=== PATIENT | male | born 1975 | race Caucasian/White ===

== ENCOUNTER 2023-09-29 12:19 | Emergency (ER) | payer BC, SELFPAY ==
[2023-09-29] VITALS (14 sets, daily range): BP systolic 126–140; BP diastolic 97–104; PULSE 58–78; RESP 18; TEMP 36; O2SAT 95–98; BMI 38.7
--- NOTE | 2023-09-29 13:10 | ED.WEAKNESS ---
HPI - Weakness General Time Seen by Provider: 13:10 Date Seen: 09/29/23 Chief complaint: Weakness Stated complaint: dizzy, feeling faint for over 24 hrs Time Seen by Provider: 09/29/23 12:40 Source: patient and RN notes reviewed Mode of arrival: ambulatory Limitations: no limitations History of Present Illness HPI Narrative: This 48-year-old male is coming in with symptoms of feeling lightheaded and faint, increasing weakness. He feels like he sleeping fine. He has not had any fevers or chills. He has had COVID before and with that he would have body aches and headaches. He has a sense of global head pressure but not truly any pain. States he has had some intermittent blurry vision, feels like it is in both eyes. He notes no nasal drainage, no cough or cold symptoms. He has no history of seasonal allergies. He notes a little left pressure in his chest, has been present since the onset of the symptoms, feels like he started to notice this on September 24 when he just started not feeling well. He endorses some stomach discomfort with eating and drinking anything, thinks he might have ulcers developing, has had a history of ulcers per report. No abdominal pain at this time. About a week ago he did have bright red blood in his stool but notes he had a hemorrhoid. That is the only time that happen. He notes no dark tarry stools. No urinary symptoms. He feels the lightheadedness is worsening. He has not noted any sense of spinning sensation. Related Data Home Medications ?Medication ?Instructions ?Recorded ?Confirmed omeprazole 20 mg tablet,delayed 20 mg PO QDAY 03/06/22 08/02/22 release Allergies Allergy/AdvReac Type Severity Reaction Status Date / Time No Known Drug Allergies Allergy Verified 08/02/22 16:04 Review of Systems Status of ROS: Reports: 6 or more systems reviewed and unremarkable except as noted in History and below [facility] Medical History (Updated 09/29/23 @ 15:35 by Keyona Ordonez MD) Sore throat ?J02.9 - Acute pharyngitis, unspecified (ICD-10) Social History Smoking Status: Former smoker What tobacco products do you use: cigarettes Smoking quit date/years: <= 15 years ago Do you use any of these nicotine containing products: None Second hand tobacco smoke exposure: No How often do you have a drink containing alcohol: monthly or less How many standard drinks containing alcohol do you have on a typical day: 1 or 2 How often do you have six or more drinks on one occasion: Never AUDIT-C Alcohol total score: 1 Non-prescribed substance use: marijuana (any form) service: No Exam Const: Vital Signs, click to edit/add: Vital Signs - 24 hr 09/29/23 12:26 09/29/23 12:50 09/29/23 13:00 Temperature 96.8 F L Pulse Rate 65 65 Pulse Rate [Pulse Oximeter] 67 Respiratory Rate 18 Blood Pressure Blood Pressure [Ri ght Upper Arm] 137/99 H Pulse Oximetry 96 95 95 Oxygen Delivery Me thod Room Air 09/29/23 13:01 09/29/23 13:15 09/29/23 13:40 Temperature Pulse Rate 58 L 77 74 Pulse Rate [Pulse Oximeter] Respiratory Rate Blood Pressure 129/104 H Blood Pressure [Ri ght Upper Arm] Pulse Oximetry 96 97 97 Oxygen Delivery Me thod 09/29/23 13:45 09/29/23 14:00 09/29/23 14:01 Temperature Pulse Rate 62 70 66 Pulse Rate [Pulse Oximeter] Respiratory Rate Blood Pressure 126/97 H Blood Pressure [Ri ght Upper Arm] Pulse Oximetry 96 97 97 Oxygen Delivery Me thod 09/29/23 14:02 09/29/23 14:15 09/29/23 14:30 Temperature Pulse Rate 67 71 78 Pulse Rate [Pulse Oximeter] Respiratory Rate Blood Pressure Blood Pressure [Ri ght Upper Arm] Pulse Oximetry 96 97 97 Oxygen Delivery Me thod 09/29/23 14:31 09/29/23 14:45 Temperature Pulse Rate 62 72 Pulse Rate [Pulse Oximeter] Respiratory Rate Blood Pressure 140/99 H Blood Pressure [Ri ght Upper Arm] Pulse Oximetry 98 97 Oxygen Delivery Me od This 48-year-old male is alert, interactive, no apparent distress. Pupils equal round reactive to light, sclera clear, extraocular muscles intact. TMs canals normal. Symmetrical facial function, oropharynx with normal mucosa, does have an upper denture. Speech is normal. Neck is supple, no adenopathy or masses. Lungs are clear, good air entry, no wheezing or crackles. CV regular rate and rhythm, no murmur, normal S1-S2, no S3-S4. Abdomen is soft, no rebound or guarding, organomegaly, nontender throughout. No lower extremity edema. Neuro is grossly intact with normal sensation strength. Patient was ambulatory into the ED of his own accord. Documenting provider has reviewed patient's vital signs: yes Course Course ED Course: Patient had an EKG done by a nursing staff on arrival, no acute change in that. He will be on pulse oximetry. Will get a full complement of labs, check triple viral swab to ensure no COVID. He will have a chest x-ray, will do a head CT given his symptoms. This could be infectious, metabolic. Reviewed with him that the head CT will give us a cursory look at sinuses 2 in rule out anything like sinus disease/sinusitis. Electrolytes and glucose will be done on the comprehensive metabolic panel. Reevaluation(s) Time of Reevaluation #1: 15:22 Reevaluation #1: Reviewed chest x-ray findings and head CT findings. He does not seem to have significant symptoms suggestive of symptomatic Chiari malformation. We did discuss the importance of further workup in follow-up of this, there is also question of empty sella syndrome. His blurry vision symptoms are not likely to be associated with a Chiari malformation but could be with empty sella syndrome. We cannot do MRI here at this time nor do I feel it needs to be done emergently. He needs this done on a somewhat urgent outpatient basis and should go through his primary care provider. Consideration for endocrine testing needs to be done particularly if there is evidence of empty sella syndrome. Reviewed normal and reassuring labs. Troponin, procalcitonin, C reactive protein all normal. Vital Signs Vital signs: Initial Vital Signs Temperature 96.8 F L 09/29/23 12:26 Temperature Source Temporal Artery Scan 09/29/23 12:26 Pulse Rate 67 09/29/23 12:26 Pulse Rhythm Regular 09/29/23 12:26 Respiratory Rate 18 09/29/23 12:26 Blood Pressure 137/99 H 09/29/23 12:26 Blood Pressure Mean 111 H 09/29/23 12:26 Blood Pressure Position Supine 09/29/23 12:26 Pulse Oximetry 96 09/29/23 12:26 Oxygen Delivery Method Room Air 09/29/23 12:26 Vital Signs Temperature 96.8 F L 09/29/23 12:26 Pulse Rate 67 09/29/23 12:26 Respiratory Rate 18 09/29/23 12:26 Blood Pressure 137/99 H 09/29/23 12:26 Pulse Oximetry 96 09/29/23 12:26 Oxygen Delivery Method Room Air 09/29/23 12:26 Temperature 96.8 F L 09/29/23 12:26 Pulse Rate 72 09/29/23 14:45 Respiratory Rate 18 09/29/23 12:26 Blood Pressure 140/99 H 09/29/23 14:31 Pulse Oximetry 97 09/29/23 14:45 Oxygen Delivery Method Room Air 09/29/23 12:26 MDM - Weakness Lab Data Attestation: I reviewed the patient's lab results. Labs: Lab Results 09/29/23 09/29/23 Range/Units 13:55 14:45 WBC 8.26 (4.50-11.00) K/uL RBC 5.63 (4.30-5.90) m/uL Hgb 16.6 (13.5-17.5) gm/dL Hct 47.3 (37.0-53.0) % MCV 84 (80-100) fL MCH 30 (26-34) pg MCHC 35 (32-36) gm/dL RDW Coeff of Natalia 12.3 (11.5-15.5) % Plt Count 228 (140-440) K/uL Neut % (Auto) 60.7 (42.0-72.0) % Lymph % (Auto) 30.3 (20-44) % [place] % (Auto) 7.1 (0.0-11.0) % Eos % (Auto) 1.2 (0.0-7.0) % Baso % (Auto) 0.6 (0.0-3.0) % Neut # (Auto) 5.01 (1.7-7.0) K/uL Lymph # (Auto) 2.50 (0.90-2.90) K/uL [place] # (Auto) 0.60 (0.00-0.90) K/UL Eos # (Auto) 0.10 (0.00-0.50) K/uL Baso # (Auto) 0.05 (0.00-0.30) K/uL Abs Immat Gran (auto) 0.01 (0.00-0.30) K/uL Imm/Tot Granulo (auto) 0.1 % ESR 2 (2-15) mm/hr D-Dimer Quant (PE/DVT) 0.31 (0.00-0.50) ug/ml Sodium 136 (135-149) mmol/L Potassium 4.2 (3.6-5.1) mmol/L Chloride 105 (96-114) mmol/L Carbon Dioxide 23 (20-32) mmol/L Anion Gap 8 (7-15) mEq/L BUN 14 (5-24) mg/dL Creatinine 0.8 (0.5-1.5) mg/dL Estimated Creat Clear 104.12 Estimated GFR 111 ml/min Glucose 93 (60-115) mg/dL Lactate 1.3 (0.5-1.9) mmol/L Calcium 9.9 (8.4-10.6) mg/dL Magnesium 1.8 (1.5-2.6) mg/dL Total Bilirubin 0.6 (0.1-1.5) mg/dL AST 28 (12-35) U/L ALT 36 (4-50) U/L Alkaline Phosphatase 81 (40-150) U/L Troponin I < 0.01 L (0.01-0.04) ng/mL C-Reactive Protein < 0.5 L (0.5-1.0) mg/dL NT-Pro-B Natriuret Pep 26 pg/mL Total Protein 7.0 (6.0-8.3) g/dL Albumin 4.3 (3.3-5.0) g/dL Lipase 127 (23-300) U/L Procalcitonin 0.05 (<0.50) ng/mL Urine Color Yellow (Yellow) Urine Appearance Clear (Clear) Urine pH 6.0 (5.0-8.5) Ur Specific Thornton 1.020 (1.000-1.030) Urine Protein Negative (Negative) Urine Glucose (UA) Negative (Negative) Urine Ketones Negative (Negative) Urine Blood Negative (Negative) Urine Nitrite Negative (Negative) Urine Bilirubin Negative (Negative) Urine Urobilinogen 0.2 (0.2-1.0) Ur Leukocyte Esterase Negative (Negative) Urine RBC 0-2 (0-2) Urine WBC 0-2 (0-5) Ur Squamous Epith Cells None (None-Few) Urine Bacteria None (None) SARS-CoV-2 (PCR) Negative SARS-CoV-2 (Negative) Influenza Type A (PCR) Negative PCR FLU A (Negative) Influenza Type B (PCR) Negative PCR FLU B (Negative) RSV (PCR) Negative PCR RSV (Negative) Imaging Data CT scan - head: Attestation: I have reviewed the pertinent imaging results. Radiologist's impression: Patient: ANGE TYSON Facility:?[facility] Patient ID:?[id number] Site Patient ID:?[id number]. Site :?[id number] Study:?CT-Head W/O-09/29/2023 1:39:01 PM Ordering Physician:Binta Rand Final Report: INDICATION: Dizziness, head pressure TECHNIQUE: Noncontrast axial CT of the head. Coronal and sagittal reformats. Bone and soft tissue algorithms. COMPARISON: No relevant comparison studies available at this institution. FINDINGS: Right asymmetric low-lying cerebellar tonsils, appearing to descend at least 5 mm below the level of foramen magnum. The ventricles and cortical sulci appear normal in configuration. No midline shift, mass effect, or hydrocephalus. No acute intracranial hemorrhage or extra-axial fluid collection. Lopez-white matter differentiation is grossly maintained. White matter attenuation is within normal limits. Intracranial vessels are unremarkable for technique. Predominantly empty sella configuration. Bony calvarium appears grossly intact. Paranasal sinuses and mastoid air cells are clear. Orbits are unremarkable. IMPRESSION: 1. No CT evidence of acute intracranial abnormality. 2. Right asymmetric low-lying cerebellar tonsils, appearing to descend at least 5 mm below the level of foramen magnum, suggestive of Chiari 1 malformation. 3. Predominantly empty sella configuration, which can be an incidental anatomic/physiologic variant. However, this could also be seen in the setting of intracranial hypertension, for which clinical correlation is advised. Please note that all CT scans at this facility use dose modulation, iterative reconstruction, and/or weight-based dosing when appropriate to reduce radiation dose to as low as reasonably achievable. Dictated by Stacey Blake MD @ 09/29/2023 1:59:36 PM (Electronic Signature) Chest x-ray: Attestation: I have reviewed the pertinent imaging results. Radiologist's impression: Patient: ANGE TYSON Facility:?[facility] Patient ID:?[id number] Site Patient ID:?[id number]. Site :?[id number] Study:?XRay-Chest 2V-09/29/2023 1:39:39 PM Ordering Physician:Binta Rand Final Report: INDICATION: Chest discomfort. Technique: Two-views. COMPARISON: None. FINDINGS: The heart size is upper normal. There is no mediastinal widening. Pulmonary vessels are within normal limits. Subcentimeter focal nodules in the bilateral lungs, on the left just lateral to the hilum, and on the right overlying the posterior aspect of right 8th rib, are probably granulomas. Otherwise, lungs are clear. No sign of pneumothorax. The visualized osseous structures are unremarkable with no acute/aggressive osseous lesions identified. IMPRESSION: Probable pulmonary granulomas, as described. Otherwise no acute cardiopulmonary process demonstrated. Dictated by Hilario Gregory MD @ 09/29/2023 2:23:57 PM (Electronic Signature) ECG Data Attestation: I personally reviewed and interpreted this ECG as follows: (Normal sinus rhythm, 86 beats per minute. No acute ischemia or infarct noted.) ECG interpretation date: 09/29/23 ECG interpretation time: 13:45 Prior ECG tracings: not available for review Discharge Plan Discharge Clinical Impression: Dizziness, Blurred vision, bilateral Patient Disposition: Home, Self-Care Condition: Stable Instructions: Blurred Vision (ED), Dizziness (ED) Additional Instructions: See you will need an outpatient MRI of your brain, please follow up in clinic to get this scheduled to your primary care provider. Do recommend neurology consultation with the MRI report once done as well. The MRI needs to be done for the Chiari malformation as well as the possible empty sella syndrome that is seen on CT imaging. We unfortunately cannot do MRI here at this time, it is not available. If empty sella syndrome is confirmed, need to consider further blood work for endocrine abnormalities. Visual changes can be seen with empty sella syndrome but do recommend that you see an eye doctor in the interim as well to check your vision. I would prefer that you are seen in clinic this next week to get this evaluation underway. Your laboratory blood work is normal. Again, may need more endocrine labs which are not typically emergent labs done in the ER if ongoing symptoms. Activity Level: Activity as Tolerated Prescriptions: No Action omeprazole 20 mg tablet,delayed release (DR/EC) 20 mg PO QDAY Follow Up/Referrals: Provider,Not a Local [Primary Care Provider] - Stand Alone Forms: [employer] Info Instructions
--- NOTE | 2023-09-29 13:17 | CRLHL7_ITS ---
For Patients: As a result of the Century Cures Act, medical imaging exams and procedure reports are released immediately into your electronic medical record. You may view this report before your referring provider. If you have questions, please contact your health care provider. INDICATION: Dizziness, head pressure TECHNIQUE: Noncontrast axial CT of the head. Coronal and sagittal reformats. Bone and soft tissue algorithms. COMPARISON: No relevant comparison studies available at this institution. FINDINGS: Right asymmetric low-lying cerebellar tonsils, appearing to descend at least 5 mm below the level of foramen magnum. The ventricles and cortical sulci appear normal in configuration. No midline shift, mass effect, or hydrocephalus. No acute intracranial hemorrhage or extra-axial fluid collection. Lopez-white matter differentiation is grossly maintained. White matter attenuation is within normal limits. Intracranial vessels are unremarkable for technique. Predominantly empty sella configuration. Bony calvarium appears grossly intact. Paranasal sinuses and mastoid air cells are clear. Orbits are unremarkable. IMPRESSION: 1. No CT evidence of acute intracranial abnormality. 2. Right asymmetric low-lying cerebellar tonsils, appearing to descend at least 5 mm below the level of foramen magnum, suggestive of Chiari 1 malformation. 3. Predominantly empty sella configuration, which can be an incidental anatomic/physiologic variant. However, this could also be seen in the setting of intracranial hypertension, for which clinical correlation is advised. Please note that all CT scans at this facility use dose modulation, iterative reconstruction, and/or weight-based dosing when appropriate to reduce radiation dose to as low as reasonably achievable. Dictated by Stacey Blake MD @ 09/29/2023 1:59:36 PM (Electronically Signed)
--- NOTE | 2023-09-29 13:18 | CRLHL7_ITS ---
For Patients: As a result of the Century Cures Act, medical imaging exams and procedure reports are released immediately into your electronic medical record. You may view this report before your referring provider. If you have questions, please contact your health care provider. INDICATION: Chest discomfort. Technique: Two-views. COMPARISON: None. FINDINGS: The heart size is upper normal. There is no mediastinal widening. Pulmonary vessels are within normal limits. Subcentimeter focal nodules in the bilateral lungs, on the left just lateral to the hilum, and on the right overlying the posterior aspect of right 8th rib, are probably granulomas. Otherwise, lungs are clear. No sign of pneumothorax. The visualized osseous structures are unremarkable with no acute/aggressive osseous lesions identified. IMPRESSION: Probable pulmonary granulomas, as described. Otherwise no acute cardiopulmonary process demonstrated. Dictated by Hilario Gregory MD @ 09/29/2023 2:23:57 PM (Electronically Signed)
--- OUTSIDE RECORDS SUMMARY | 2023-09-29 13:33 | XMS_ITS | Referral Summary ---
Author Organization [facility] Address [address] [place] [address] Care Team Providers Care Food Equipment Service Technician Name Role Phone No Ref-Primary, Physician Primary Care Provider Allergies No known active allergies Medications Medication Sig Dispensed Refills Start Date End Date Status Omeprazole (PRILOSEC PO) Active guaiFENesin-codeine (ROBITUSSIN AC) 100-10 MG/5ML SOLN Take 10 mLs by mouth every 4 hours as needed 120 mL 0 04/02/2013 Active albuterol (ALBUTEROL) 108 (90 BASE) MCG/ACT inhaler Inhale 2 puffs into the lungs every 4 hours as needed for shortness of breath / dyspnea 1 Inhaler 0 04/02/2013 Active oxyCODONE (ROXICODONE) 5 MG immediate release tablet Take 1 tablet (5 mg) by mouth every 6 hours as needed for moderate to severe pain 15 tablet 0 10/11/2014 Active LORazepam (ATIVAN) 0.5 MG tablet Take 0.5 mg by mouth every 6 hours as needed for anxiety Active metoclopramide (REGLAN) 5 MG tablet Take 1 tablet (5 mg) by mouth 4 times daily (before meals and nightly) 20 tablet 12/05/2020 Active SUMAtriptan (IMITREX) 25 MG tablet Take 25-100mg one time. May repeat 25mg every two hours up to a maximum of 200mg in 24 hours. 8 tablet 12/05/2020 Active ibuprofen (ADVIL/MOTRIN) 600 MG tablet Take 1 tablet (600 mg) by mouth every 6 hours as needed for moderate pain 30 tablet 1 12/05/2020 Active Social History Tobacco Use Types Packs/Day Years Used Date Smoking Tobacco: Never Assessed Adolescent Education Answer Date Record ed Getting School Help Needed Not on file 12/30 Sex and Gender Information Value Date Recorded Sex Assigned at Not on file Gender Identity Not on file Sexual Orientation Not on file Last Filed Vital Signs Vital Sign Reading Time Taken Comments Blood Pressure 141/99 12/05/2020 1:49 PM CDT Pulse 70 12/05/2020 1:49 PM CDT Temperature 36.8 ??C (98.2 ??F) 12/05/2020 9:54 AM CD T Respiratory Rate 20 12/05/2020 9:54 AM CDT Oxygen Saturation 98% 12/05/2020 1:44 PM CDT Inhaled Oxygen Concentration - - Weight 101.2 kg (223 lb 1.7 oz) 01/22/2019 5:49 PM CDT Height 167.6 cm (5' 6) 04/11/2017 1:37 PM [employer] Body Mass Index 36.01 04/11/2017 1:37 PM [employer] Plan of Treatment Not on file Procedures Procedure Name Priority Date/Time Associated Diagnosis Comments COMPREHENSIVE METABOLIC PANEL STAT 12/05/2020 12:00 PM CDT from Last 3 Months or Most Recently Relevant to Health Maintenance Results * Comprehensive metabolic panel (12/05/2020 12:00 PM CDT) Sodium 138 133 - 144 mmol/L 12/05/2020 12:31 PM CDT LABORATORY Potassium 4.0 3.4 - 5.3 mmol/L 12/05/2020 12:31 PM CDT LABORATORY Chloride 107 94 - 109 mmol/L 12/05/2020 12:31 PM CDT [facility] Carbon Dioxide (CO2) 25 20 - 32 mmol/L 12/05/2020 12:31 PM CDT [facility] Anion Gap 6 3 - 14 mmol/L 12/05/2020 12:31 PM CDT [facility] Urea Nitrogen 17 7 - 30 mg/dL 12/05/2020 12:31 PM CDT [facility] Creatinine 0.92 0.66 - 1.25 mg/dL 12/05/2020 12:31 PM CDT LABORATORY Calcium 9.2 8.5 - 10.1 mg/dL 12/05/2020 12:31 PM CDT LABORATORY Glucose 82 70 - 99 mg/dL 12/05/2020 12:31 PM CDT LABORATORY Alkaline Phosphatase 81 40 - 150 U/L 12/05/2020 12:31 PM CDT LABORATORY AST 21 0 - 45 U/L 12/05/2020 12:31 PM CDT [facility] ALT 45 0 - 70 U/L 12/05/2020 12:31 PM CDT LABORATORY Protein Total 7.1 6.8 - 8.8 g/dL 12/05/2020 12:31 PM CDT [facility] Albumin 3.9 3.4 - 5.0 g/dL 12/05/2020 12:31 PM CDT LABORATORY Bilirubin Total 0.7 0.2 - 1.3 mg/dL 12/05/2020 12:31 PM CDT [facility] GFR Estimate >90 >60 mL/min/1.7 3m2 12/05/2020 12:31 PM CDT LABORATORY Comment:As of October 02, 2020, eGFR is calculated by the CKD-EPI creatinine equation, without race adjustment. eGFR can be influenced by muscle mass, exercise, and diet. The reported eGFR is an estimation only and is only applicable if the renal function is stable. Blood STRUCTURE OF LEFT UPPER LIMB / Unknown Venipuncture / Unknown 12/05/2020 12:00 PM CDT 12/05/2020 12:06 PM CDT Ceasar Morrison MD LAB - BLOOD PEDRO [facility] Organization Address City/State/ZIP Co de Phone Number LABORATORY [facility] [address] Lab (1st floor, no room number) [place] [address], [facility] [phone] from Last 3 Months or Most Recently Relevant to Health Maintenance Care Teams Food Equipment Service Technician Relationship Specialty Start Date End Date No Ref-Primary, Physician PCP - General 11/13/20
--- OUTSIDE RECORDS SUMMARY | 2023-09-29 13:33 | XMS_ITS | Continuity of Care Document ---
Author Organization [facility] Address [address] [address] [place] [address] Phone Care Team Providers Care Counselor Dormitory Name Role Phone Link Amadou RODRIGUEZ Unavailable Unavailable Advance Directives Directive Yes / No Effective Date File Name No Information Encounters Encounter Description Practice Location Reason(s) For Visit Diagnoses Date Provider Providers Copied on Encounter [facility], [address] [address], [place], [place], [id number], [place] tel:[phone] [facility] No Information 6 Brett Tobar. [address] [facility], [facility] [address], [place], [place], [id number] , [place]. tel:[phone] Referring Provider: Jose David Raya MD, [address] [place] [address], [address]. tel:[phone] Family History Family Member Type Diagnosis Age At Onset No Information Payers Payer name Insurance type Covered libertarian ID Authoriza tion(s) No Information Social History [...]
--- OUTSIDE RECORDS SUMMARY | 2023-09-29 13:33 | XMS_ITS | Continuity of Care Document ---
Author Organization [facility] Address [address] [address] [place] [address] Phone Care Team Providers Care Sanforizer Name Role Phone Link Amadou RODRIGUEZ Unavailable Unavailable Advance Directives Directive Yes / No Effective Date File Name No Information Encounters Encounter Description Practice Location Reason(s) For Visit Diagnoses Date Provider Providers Copied on Encounter [facility], [address] [address], [place], [place], [id number], [place] tel:[phone] [facility] No Information 6 Brett Tobar. [address] [facility], [facility] [address], [place], [place], [id number] , [place]. tel:[phone] Referring Provider: Jose David Raya MD, [address] [place] [address], [address]. tel:[phone] Family History Family Member Type Diagnosis Age At Onset No Information Payers Payer name Insurance type Covered republican ID Authoriza tion(s) No Information Social History [...]
--- OUTSIDE RECORDS SUMMARY | 2023-09-29 13:33 | XMS_ITS | Clinical Summary ---
Author Organization [facility] Address [address] [place] [address] Care Team Providers Care Continuous Drier Helper Name Role Phone No Ref-Primary, Physician Primary [...] 167.6 cm (5' 6) 04/11/2017 1:37 PM ADULT SECONDARY EDUCATION INSTRUCTOR Body Mass Index 36.01 04/11/2017 1:37 PM ADULT SECONDARY EDUCATION INSTRUCTOR Plan of Treatment Health Maintenance Due Date Last Done Comments ADVANCE CARE PLANNING 1977 ANNUAL REVIEW OF HM ORDERS 1977 CT COLONOGRAPHY 1977 FIT 1977 FLEX SIG 1977 YEARLY PREVENTIVE VISIT 1977 sDNA (Cologuard) 1977 COLONOSCOPY 1987 COLORECTAL CANCER SCREENING 1987 HIV SCREENING 02/06/1992 HEPATITIS C SCREENING 1995 DTAP/TDAP/TD IMMUNIZATION (1 - Tdap) 2002 HEPATITIS B IMMUNIZATION (2 of 3 - 19+ 3-dose series) 07/03/2016 06/05/2016 LIPID 2017 COVID-19 Vaccine (1 - 2022-24 season) 2022 PHQ-2 (once per calendar year) 2023 INFLUENZA VACCINE (#1) 2023 GLUCOSE 12/06/2023 12/05/2020, 10/24, 01/22/2019, Additional history exists HPV IMMUNIZATION Aged Out No longer e ligible based on patient's age to complete this topic IPV IMMUNIZATION Aged Out No longer e ligible based on patient's age to complete this topic MENINGITIS IMMUNIZATION Aged Out No l onger eligible based on patient's age to complete this topic Pneumococcal Vaccine: Pediatrics (0 to 5 Years) and At-Risk Patients (6 to 64 Years) Aged Out No longer eligible based on patient's age to complete this topic RSV MONOCLONAL ANTIBODY Aged Out No l onger eligible based on patient's age to complete this topic Procedures Procedure Name Priority Date/Time Associated Diagnosis Comments COMPREHENSIVE METABOLIC PANEL STAT 12/05/2020 12:00 PM CDT from Last 3 Months or Most Recently Relevant to Health Maintenance Results * Comprehensive metabolic panel (12/05/2020 12:00 PM CDT) Sodium 138 133 - 144 mmol/L 12/05/2020 12:31 PM CDT [facility] Potassium 4.0 3.4 - 5.3 mmol/L 12/05/2020 12:31 PM CDT [facility] Chloride 107 94 - 109 mmol/L 12/05/2020 12:31 PM CDT [facility] Carbon Dioxide (CO2) 25 20 - 32 mmol/L 12/05/2020 12:31 PM CDT [facility] Anion Gap 6 3 - 14 mmol/L 12/05/2020 12:31 PM CDT [facility] Urea Nitrogen 17 7 - 30 mg/dL 12/05/2020 12:31 PM CDT [facility] Creatinine 0.92 0.66 - 1.25 mg/dL 12/05/2020 12:31 PM CDT [facility] Calcium 9.2 8.5 - 10.1 mg/dL 12/05/2020 12:31 PM CDT [facility] Glucose 82 70 - 99 mg/dL 12/05/2020 12:31 PM CDT [facility] Alkaline Phosphatase 81 40 - 150 U/L 12/05/2020 12:31 PM CDT [facility] AST 21 0 - 45 U/L 12/05/2020 12:31 PM CDT [facility] ALT 45 0 - 70 U/L 12/05/2020 12:31 PM CDT [facility] Protein Total 7.1 6.8 - 8.8 g/dL 12/05/2020 12:31 PM CDT [facility] Albumin 3.9 3.4 - 5.0 g/dL 12/05/2020 12:31 PM CDT [facility] Bilirubin Total 0.7 0.2 - 1.3 [...] Morrison MD LAB - BLOOD PEDRO [facility] Organization Address City/State/ZIP Co de Phone Number LABORATORY [facility] [address] [facility] (1st floor, no room number) [place] [address], [facility] [phone] from Last 3 Months or Most Recently Relevant to Health Maintenance Care Teams Continuous Drier Helper Relationship Specialty Start Date End Date No Ref-Primary, Physician PCP - General 11/13/20
[2023-09-29 14:01] LABS: Lactate* 1.3 mmol/L (0.5-1.9)
[2023-09-29 14:05] LABS: Basophils Absolute Auto 0.05 K/uL (0.00-0.30); Basophils Percent Auto 0.6 % (0.0-3.0); Eosinophils Percent Auto 1.2 % (0.0-7.0); Hematocrit 47.3 % (37.0-53.0); Hemoglobin* 16.6 gm/dL (13.5-17.5); Immature Granulocytes Abs Auto 0.01 K/uL (0.00-0.30); Immature Granulocytes Pct Auto 0.1 %; Lymphocytes Percent Auto 30.3 % (20-44); Mean Corpuscular HGB Conc 35 gm/dL (32-36); Mean Corpuscular Hemoglobin 30 pg (26-34); Mean Corpuscular Volume 84 fL (80-100); Monocytes Percent Auto 7.1 % (0.0-11.0); Neutrophils Absolute Auto 5.01 K/uL (1.7-7.0); Neutrophils Percent Auto 60.7 % (42.0-72.0); Platelet Count* 228 K/uL (140-440); RDW Coefficient of Variation % 12.3 % (11.5-15.5); Red Blood Count 5.63 m/uL (4.30-5.90); White Blood Count* 8.26 K/uL (4.50-11.00)
[2023-09-29 14:21] LABS: Albumin* 4.3 g/dL (3.3-5.0); Chloride* 105 mmol/L (96-114); Slide Review Reflex No
[2023-09-29 14:22] LABS: Potassium* 4.2 mmol/L (3.6-5.1); Sodium* 136 mmol/L (135-149)
[2023-09-29 14:24] LABS: Bilirubin Total* 0.6 mg/dL (0.1-1.5); Creatinine* 0.8 mg/dL (0.5-1.5); Est. Creatinine Clearance* 104.12; Estimated Glomerular Filt Rate 111 ml/min
[2023-09-29 14:25] LABS: Alanine Aminotransferase* 36 U/L (4-50); Alkaline Phosphatase* 81 U/L (40-150); Anion Gap 8 mEq/L (7-15); Aspartate Amino Transferase* 28 U/L (12-35); Blood Urea Nitrogen* 14 mg/dL (5-24); Calcium* 9.9 mg/dL (8.4-10.6); Carbon Dioxide* 23 mmol/L (20-32); D Dimer Quantitative* 0.31 ug/ml (0.00-0.50); Glucose* 93 mg/dL (60-115); Lipase* 127 U/L (23-300); Magnesium* 1.8 mg/dL (1.5-2.6)
[2023-09-29 14:41] LABS: Procalcitonin* 0.05 ng/mL (<0.50)
[2023-09-29 14:45] LABS: C Reactive Protein* < 0.5 mg/dL (0.5-1.0); NT Pro B Type NatriureticPept* 26 pg/mL; Troponin I* < 0.01 ng/mL (0.01-0.04)
[2023-09-29 14:56] LABS: PCR FLU A Negative PCR FLU A (Negative); PCR FLU B Negative PCR FLU B (Negative); PCR RSV Negative PCR RSV (Negative); SARS PCR* Negative SARS-CoV-2 (Negative)
[2023-09-29 15:02] LABS: Appearance Urine Clear (Clear); Bilirubin Urine Negative (Negative); Blood Urine Negative (Negative); Color Urine Yellow (Yellow); Glucose Urine Negative (Negative); Ketones Urine Negative (Negative); Leukocyte Esterase Urine Negative (Negative); Nitrite Urine Negative (Negative); Protein Urine Negative (Negative); Urobilinogen Urine 0.2 (0.2-1.0)
[2023-09-29 15:03] LABS: Erythrocyte SedimentationRate* 2 mm/hr (2-15)
[2023-09-29 15:15] LABS: RBC Urine 0-2 (0-2); WBC Urine 0-2 (0-5)
== END 2023-09-29 15:43 | disposition home or self-care (01) ==
PROVIDERS: Emergency Provider Family Medicine
DX: H53.8 Other visual disturbances (principal)
CPT/HCPCS: 36415; 70450; 71046; 80053; 81001; 83605; 83690; 83735; 83880; 84145; 84484; 85025; 85379; 85651; 86140; 87631; 93005; 94761; 99284; 99285

== ENCOUNTER 2025-03-20 11:21 | Emergency (ER) | payer BC, SELFPAY ==
--- OUTSIDE RECORDS SUMMARY | 2015-05-20 05:06 | XMS_ITS | Continuity of Care Document ---
Author Organization [facility] Address [address] [address] [place] [address] Phone Care Team Providers Care Vp Of Digital Marketing Name Role Phone Link Amadou RODRIGUEZ Unavailable Unavailable Advance Directives Directive Yes / No Effective Date File Name No Information Encounters Encounter Description Practice Location Reason(s) For Visit Diagnoses Date Provider Providers Copied on Encounter [facility], [address] [address], [place], [place], [id number], [place] tel:[phone] [facility] No Information 6 Brett Tobar. [address] [facility], [facility] [address], [place], [place], [id number] , [place]. tel:[phone] Referring Provider: Jose David Raya MD, [address] [place] [address], [address]. tel:[phone] Family History Family Member Type Diagnosis Age At Onset No Information Payers Payer name Insurance type Covered democrat ID Authoriza tion(s) No Information Social History Type Description Quantity Date Captured Comments Sex Male Smoking Status No Information Chief Complaint And Reason For Visit No Information Reason For Referral Reason For Referral No Information History Of Present Illness Encounter Date Complaint History Of Prese nt Illness No Information Functional Status Date Functional Assessmen t No Information Instructions Date Instruction Additional Infor mation No Information Assessments Type Assessment Date No Information Patient Care Teams Name Effective Dates (start - stop) Status Members No Information
--- OUTSIDE RECORDS SUMMARY | 2015-05-20 05:06 | XMS_ITS | Continuity of Care Document ---
Author Organization [facility] Address [address] [address] [place] [address] Phone Care Team Providers Care Life Skills Consultant Name Role Phone Link Amadou RODRIGUEZ Unavailable Unavailable Advance Directives Directive Yes / No Effective Date File Name No Information Encounters Encounter Description Practice Location Reason(s) For Visit Diagnoses Date Provider Providers Copied on Encounter [facility], [address] [address], [place], [place], [id number], [place] tel:[phone] [facility] No Information 6 Brett Tobar. [address] [facility], [facility] [address], [place], [place], [id number] , [place]. tel:[phone] Referring Provider: Jose David Raya MD, [address] [place] [address], [address]. tel:[phone] Family History Family Member Type Diagnosis Age [...]
--- OUTSIDE RECORDS SUMMARY | 2025-02-16 01:11 | XMS_ITS | Encounter Summary ---
Author Organization [facility] Address [address] [place] [address] Care Team Providers Care Paginator Name Role Phone No Ref-Primary, Physician Primary Care Provider Reason for Visit * ReasonCommentsLaceration Encounter Details DateTypeDepartmentCare Team (Latest Contact Info)Uprbynadivb21/25/2025 1:11 AM SHEET METAL PRODUCTION WORKER - 02/16/2025 2:29 AM CSTEmerjonathan [facility] [address] [place] [phone] Jhonatan Manzano MD [facility] [address] [facility] [address] [place] [address] [place] [id number] Arm laceration, left, initial encounter (Primary Dx) Discharge Disposition: Home or Self Care Social History Tobacco UseTypesPacks/DayYears UsedDateSmoking Tobacco: Never AssessedAdolescent EducationAnswerDate RecordedGetting School Help NeededNot on file12/30/2022Sex and Gender InformationValueDate RecordedSex Assigned at BirthNot on fileLegal TmrKmuc40/04/2012 4:13 AM CSTGender IdentityNot on fileSexual OrientationNot on filedocumented as of this encounter Last Filed Vital Signs Vital SignReadingTime TakenCommentsBlood Jcwjkwkq024/3301302/16/2025 2:14 AM SHEET METAL PRODUCTION WORKER Aahls865802/16/2025 2:23 AM YWHMjjhnwhfoox39.6 ??C (97.8 ??F)02/15/2025 10:57 PM CSTRespiratory Aogj826904/18/2024 2:23 AM CSTOxygen Wjjusbshub84%02/16/2025 2:23 AM CSTInhaled Oxygen Concentration--Gxldzk345.8 kg (255 lb 4.7 oz)02/15/2025 10:57 PM ZJSAltfun075.2 cm (5' 7)02/15/2025 10:57 PM CSTBody Mass Index39.98 02/15/2025 10:57 PM CSTdocumented in this encounter Functional Status * Calculated C-SSRS Risk Score (Lifetime/Recent)AnswerDate of AssessmentAuthorNo Risk Hstmsoihi27/24/2025 11:00 PM Apolonia Judge, RN * [place] Suicide Severity Rating Scale (Screener/Recent Self-Report)Question AnswerDate of AssessmentAuthor1. Wish to be (Past 1 Month)No02/15/2025 11:00 PM Apolonia Judge, RN2. Non-Specific Active Suicidal Thoughts (Past 1 Month)No02/15/2025 11:00 PM Apolonia Judge, RN6. Suicidal Behavior (Lifetime)No02/15/2025 11:00 PM Apolonia Judge, RN documented as of this encounter Discharge Instructions * Discharge Instructions* Jhonatan Manzano MD - 02/16/2025 2:18 AM SHEET METAL PRODUCTION WORKER Your sutures should be removed in 10 to 14 days. Discharge Instructions Laceration (Cut) You were seen today for a laceration (cut). Your provider examined your laceration for any problemssuch a buried foreign body (like glass, a splinter, or gravel), or injury to blood vessels, tendons, and nerves. Your provider may have also rinsed and/or scrubbed your laceration to help prevent an infection. It may not be possible to find all problems with your laceration on the first visit; occasionally foreign bodies or a tendon injury can go undetected. Your laceration may have been closed in one of several ways: No closure: many wounds will heal just fine without closure. Stitches: regular stitches that require removal. Luisa: skin luisa are often used in the scalp/head. Wound adhesive (glue): skin glue can be used for certain lacerations and doesn???t require removal. Wound strips (aka Butterfly bandages or steri-strips): these are bandages that help to close a wound. Absorbable stitches: ???dissolving?? stitches that go away on their own and usually don???t require removal. A small percentage of wounds will develop an infection regardless of how well the wound is cared for. Antibiotics are generally not indicated to prevent an infection so are only given for a small number of high-risk wounds. Some lacerations are too high risk to close, and are left open to heal because closure can increase the likelihood that an infection will develop. Remember that all lacerations, no matter how expertly repaired, will cause scarring. We consider many factors, techniques, and materials, in our efforts to provide the best possible cosmetic outcome. Generally, every Emergency Department visit should have a follow-up clinic visit with either a primary or a specialty clinic/provider. Please follow-up as instructed by your emergency provider today. Return to the Emergency Department right away if: You have more redness, swelling, pain, drainage (pus), a bad smell, or red streaking from your laceration as these symptoms could indicate an infection. You have a fever of 100.4??F or more. You have bleeding that you cannot stop at home. If your cut starts to bleed, hold pressure on the bleeding area with a clean cloth or put pressure over the bandage. If the bleeding does not stop after using constant pressure for 30 minutes, you should return to the Emergency Department for further treatment. An area past the laceration is cool, pale, or blue compared with the other side, or has a slower return of color when squeezed. Your dressing seems too tight or starts to get uncomfortable or painful. For children, signs of a problem might be irritability or restlessness. You have loss of normal function or use of an area, such as being unable to straighten or bend a finger normally. You have a numb area past the laceration. Return to the Emergency Department or see your regular provider if: The laceration starts to come open. You have something coming out of the cut or a feeling that there is something in the laceration. Your wound will not heal, or keeps breaking open. There can always be glass, wood, dirt or other things in any wound. They will not always show up, even on x-rays. If a wound does not heal, this may be why, and it is important to follow-up with your regular provider. Home Care: Take your dressing off in 12-24 hours, or as instructed by your provider, to check your laceration.Remove the dressing sooner if it seems too tight or painful, or if it is getting numb, tingly, or pale past the dressing. Gently wash your laceration 1-2 times daily with clean water and mild soap. It is okay to shower orrun clean water over the laceration, but do not let the laceration soak in water (no swimming). If your laceration was closed with wound adhesive or strips: pat it dry and leave it open to the air. For all other repairs: after you wash your laceration, or at least 2 times a day, apply antibiotic ointment (such as Neosporin?? or Bacitracin??) to the laceration, then cover it with a Band-Aid?? or gauze. Keep the laceration clean. Wear gloves or other protective clothing if you are around dirt. Follow-up for removal: If your wound was closed with luisa or regular stitches, they need to be removed according to theinstructions and timeline specified by your provider today. If your wound was closed with absorbable (???dissolving?? ) sutures, they should fall out, dissolve, or not be visible in about one week. If they are still visible, then they should be removed according to the instructions and timeline specified by your provider today. Scars: To help minimize scarring: Wear sunscreen over the healed laceration when out in the sun. Massage the area regularly once healed. You may apply Vitamin E to the healed wound. Wait. Scars improve in appearance over months and years. If you were given a prescription for medicine here today, be sure to read all of the information (including the package insert) that comes with your prescription. This will include important information about the medicine, its side effects, and any warnings that you need to know about. The pharmacist who fills the prescription can provide more information and answer questions you may have about the medicine. If you have questions or concerns that the pharmacist cannot address, please call or return to the Emergency Department. Remember that you can always come back to the Emergency Department if you are not able to see your regular provider in the amount of time listed above, if you get any new symptoms, or if there is anything that worries you. T METAL PRODUCTION WORKER documented in this encounter Medications at Time of Discharge MedicationSigDispense QuantityRefillsLast FilledStart DateEnd Date albuterol (ALBUTEROL) 108 (90 BASE) MCG/ACT inhaler Inhale 2 puffs into the lungs every 4 hours as needed for shortness of breath / dyspnea 1 Inhaler guaiFENesin-codeine (ROBITUSSIN AC) 100-10 MG/5ML SOLN Take 10 mLs by mouth every 4 hours as needed 120 mL LORazepam (ATIVAN) 0.5 MG tablet Take 0.5 mg by mouth every 6 hours as needed for anxiety metoclopramide (REGLAN) 5 MG tablet Take 1 tablet (5 mg) by mouth 4 times daily (before meals and nightly) 20 tablet 12/05/2020 Omeprazole (PRILOSEC PO) oxyCODONE (ROXICODONE) 5 MG immediate release tablet Take 1 tablet (5 mg) by mouth every 6 hours as needed for moderate to severe pain 15 tablet SUMAtriptan (IMITREX) 25 MG tablet Take 25-100mg one time. May repeat 25mg every two hours up to a maximum of 200mg in 24 hours. 8 tablet 12/05/2020 ibuprofen (ADVIL/MOTRIN) 800 MG tablet Take 1 tablet (800 mg) by mouth every 6 hours as needed for moderate pain. 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 It was immediately dressed with a pressure wrap by one of his coworkers. He has no loss of sensation distal to the wound and is moving his hand without any difficulty. Reports that his last tetanus booster was several months ago had a PCP appointment Independent Historian: None Review of External Notes: None pertinent Past Medical History Medical History and Problem List Past Medical History: Diagnosis Date ??? Gastro-oesophageal reflux disease Medications ibuprofen (ADVIL/MOTRIN) 800 MG tablet albuterol (ALBUTEROL) 108 (90 BASE) MCG/ACT inhaler guaiFENesin-codeine (ROBITUSSIN AC) 100-10 MG/5ML SOLN LORazepam (ATIVAN) 0.5 MG tablet metoclopramide (REGLAN) 5 MG tablet Omeprazole (PRILOSEC PO) oxyCODONE (ROXICODONE) 5 MG immediate release tablet SUMAtriptan (IMITREX) 25 MG tablet Past Surgical History: No past surgical history on file. Past Medical History Patient Vitals for the past 24 hrs: BP Temp Temp src Pulse Resp SpO2 Height Weight 02/16/25 0119 (!) 144/108 -- -- 89 -- -- -- -- 02/15/25 2257 (!) 174/127 97.8 ??F (36.6 ??C) Temporal 87 20 93 % 1.702 m (5' 7) 115.8 kg (255 lb 4.7 oz) Physical Exam Sitting upright in bed with gauze wrap dressing around left upper arm with no strikethrough noted. He is awake, alert, and in no distress. Breathing comfortably on room air with symmetric chest rise.2+ radial pulse. Bandage removed from left upper arm demonstrating a 7 cm laceration with exposed mayer bcutaneous fat but no active bleeding and neurovascularly intact. No foreign bodies visualized. Sensation intact and motor intact distal to wound and radial, median, and ulnar nerve. Diagnostics Lab Results Labs Ordered and Resulted from Time of ED Arrival to Time of ED Departure - No data to display Imaging XR Elbow Left G/E 3 Views Final Result IMPRESSION: Normal joint spaces and alignment. No fracture or joint effusion. Independent Interpretation X-ray of left upper arm/elbow shows no visible foreign bodies ED Course Medications Administered Medications lidocaine 1% with EPINEPHrine 1:100,000 1 %-1:523799 injection (has no administration in time range) ibuprofen (ADVIL/MOTRIN) tablet 800 mg (has no administration in time range) Procedures Laceration Repair Procedure: Laceration Repair Indication: Laceration Consent: Verbal Tetanus status reviewed and up-to-date Location: Left medial upper arm Length: 7 cm Preparation: Irrigation with Sterile Saline. Anesthesia/Sedation: Lidocaine with Epinephrine - 1% Treatment/Exploration: Wound explored, no foreign bodies found Closure: The wound was closed with one layer. Skin/superficial layer was closed with 11 x 4-0 Nylonusing Interrupted sutures. Patient Status: The patient tolerated the procedure well: Yes. There were no complications. Medical Decision Making / Diagnosis [facility] Diagnoses: None MIPS None [facility] Phil Gallagher is a 50 year old male presenting with a 7 cm laceration to his left upper arm. X-rays obtained in triage with no evidence of foreign bodies on my independent interpretation. Anesthetized, washed out, and closed as above. Given ibuprofen for pain and instructed to have sutures removedin 10 to 14 days. All questions answered, patient discharged home. Disposition The patient was discharged. Diagnosis ICD-10-CM 1. Arm laceration, left, initial encounter S41.112A Discharge Medications Current Discharge Medication List Jhonatan Manzano MD 02/16/25 0224 T METAL PRODUCTION WORKER * Apolonia Meneses RN - 02/15/2025 10:59 PM CST Scrap metal sliced into right arm. Bleeding controlled. CMS intact. Triage Assessment Row Name 02/15/25 9308 Triage Assessment Airway WDL WDL Respiratory WDL Respiratory WDL WDL Peripheral/Neurovascular WDL Peripheral Neurovascular WDL pulse assessment;neurovascular assessment upper;capillary refill Capillary Refill, RUE less than/equal to 3 secs Pulse Assessment radial LUE Neurovascular Assessment Sensation LUE no tingling;no numbness Pulse Radial Left Radial Pulse 2+ (normal) T METAL PRODUCTION WORKER documented in this encounter Plan of Treatment Not on file documented as of this encounter Procedures Procedure NamePriorityDate/TimeAssociated DiagnosisCommentsXR ELBOW LEFT G/E 3 IFYGCOAAF45/24/2025 11:15 PM SHEET METAL PRODUCTION WORKER documented in this encounter Results * XR Elbow Left G/E 3 Views (02/15/2025 11:15 PM SHEET METAL PRODUCTION WORKER)Anatomical RegionLaterality ModalityElbow, Left ElbowLeftComputed RadiographySpecimen (Source)Anatomical Location / LateralityCollection Method / VolumeCollection TimeReceived Time 02/15/2025 11:15 PM SHEET METAL PRODUCTION WORKER Impressions 02/15/2025 11:37 PM SHEET METAL PRODUCTION WORKER IMPRESSION: Normal joint spaces and alignment. No fracture or joint effusion. Narrative 02/15/2025 11:37 PM SHEET METAL PRODUCTION WORKER EXAM: XR ELBOW LEFT G/E 3 VIEWS LOCATION: [facility] DATE: 02/15/2025 INDICATION: Trauma COMPARISON: None. Procedure Note Yobani Warner MD - 02/15/2025 EXAM: XR ELBOW LEFT G/E 3 VIEWS LOCATION: [facility] DATE: 02/15/2025 INDICATION: Trauma COMPARISON: None. IMPRESSION: Normal joint spaces and alignment. No fracture or jointeffusion. Authorizing ProviderResult TypeResult StatusChristopher Eliseo DIAS DIAGNOSTIC IMAGING ORDERABLESFinal Result documented in this encounter Visit Diagnoses Diagnosis Arm laceration, left, initial encounter- Primary documented in this encounter Administered Medications Medication OrderMAR ActionAction DateDoseRateSite ibuprofen (ADVIL/MOTRIN) tablet 800 mg 800 mg, Oral, ONCE, On Sat02/16/25 at 0220, For 1 dose, Give with food. $Given02/16/2025 2:22 AM POE150 mg lidocaine 1% with EPINEPHrine 1:100,000 1 %-1:140099 injection Starting on Sat02/16/25 at 0134, For 1 dose, Jhonatan Manzano N: cabineangela override $Given by Other Demijiuzc67/25/2025 2:22 AM CSTdocumented in this encounter Active and Recently Administered Medications Times are shown in SHEET METAL PRODUCTION WORKER.Medication Order/ ibuprofen (ADVIL/MOTRIN) tablet 800 mg (COMPLETED) 800 mg, Oral, ONCE, On Sat02/16/25 at 0220, For 1 dose, Give with food. * 0222 ($Given - Provider: Lisa Huang RN) Medication Order11/23/010391 lidocaine 1% with EPINEPHrine 1:100,000 1 %-1:445811 injection (COMPLETED) Starting on Sat02/16/25 at 0134, For 1 dose, Sweat, Yuriyer N: cabinet override * 0222 ($Given by Other Clinician - Provider: Lisa Huang RN) documented in this encounter Care Teams Team MemberRelationshipSpecialtyStart DateEnd Date No Ref-Primary, Physician PCP - [facility]11/13/20documented as of this encounter
[2025-03-20] VITALS (10 sets, daily range): BP systolic 132–157; BP diastolic 96–102; PULSE 69–93; RESP 18; TEMP 36.8; O2SAT 94–98; BMI 40.0
--- OUTSIDE RECORDS SUMMARY | 2025-03-20 11:23 | XMS_ITS | Encounter Summary ---
Author Organization [facility] Address [address] [place] [address] Care Team Providers Care Toolmaker Name Role Phone No Ref-Primary, Physician Primary Care Provider Encounter Details DateTypeDepartmentCare Team (Latest Contact Info)Hjsgbqrygws27/24/2025Travel Social History Tobacco UseTypesPacks/DayYears UsedDateSmoking Tobacco: Never AssessedAdolescent EducationAnswerDate RecordedGetting School Help NeededNot on file12/30/2022Sex and Gender InformationValueDate RecordedSex Assigned at BirthNot on fileLegal YpyDtqt37/04/2012 4:13 AM CSTGender IdentityNot on fileSexual OrientationNot on filedocumented as of this encounter Plan of Treatment Not on file documented as of this encounter Visit Diagnoses Not on filedocumented in this encounter Care Teams Team MemberRelationshipSpecialtyStart DateEnd Date No Ref-Primary, Physician PCP - General11/13/20documented as of this encounter
--- OUTSIDE RECORDS SUMMARY | 2025-03-20 11:23 | XMS_ITS | Clinical Summary ---
Author Organization [facility] Address [address] [place] [address] Care Team Providers Care Administrative Office Clerk Name Role Phone Sirena Vincent Primary Care Provider Allergies No known active allergies Medications MedicationSigDispense QuantityRefillsLast FilledStart DateEnd DateStatus omeprazole (PRILOSEC) 20 mg Delayed-Release capsule Take 1 Capsule (20 mg) by mouth once daily before a meal. Take 30 minutes prior to a meal09/30/2023ctive Calcium Carbonate (Tums) 320 mg calcium (750 mg) chew Chew by mouth.Active ergocalciferol (vitamin D2) (VITAMIN D2 ORAL) Take by mouth every 3 days.Active Active Problems ProblemNoted DateDiagnosed DateChiari malformation type I12/04/2023New daily persistent jfgxjemc87/11/2024Tension type vyapwadl77/11/2024epression, yfpbwihcy97/19/5339Gwzfbjy00/19/2022 Immunizations ImmunizationAdministration DatesNext DueHepatitis B (Adult)09/18/2024,06/05/2016 MMR06/05/2016Tdap09/18/2024,07/01/2014Varicella Aqpsjjx1106/05/2016 Family History Medical HistoryRelationNameCommentsNo Known ProblemsFatherNo Known Problems Maternal GrandfatherArrhythmiaMaternal GrandmotherHypertensionMaternal GrandmotherAlcoholismMotherDrug AbuseMotherNo Known ProblemsPaternal Grandfather No Known ProblemsPaternal GrandmotherDepressionSister 1Drug AbuseSister 1Obesity Sister 1StrokeSister 1DiabetesSister 2No Known ProblemsSonRelationNameStatus CommentsFatherUnknownMaternal GrandfatherDeceasedMaternal GrandmotherDeceased MotherDeceasedPaternal GrandfatherDeceasedPaternal GrandmotherDeceasedSister 1 DeceasedSister 2SonAlive Social History Tobacco UseTypesPacks/DayYears UsedDateSmoking Tobacco: FormerSmokeless Tobacco: Never Tobacco Cessation:Counseling Given: Not Answered Comments:quit 05/20/16 Alcohol UseStandard Drinks/WeekCommentsYes0 (1 standard drink = 0.6 oz pure alcohol)socialPHQ-2AnswerDate RecordedPHQ-2 TOTAL CRCSH453Social ConnectionsAnswerDate RecordedDo you often feel lonely or isolated from those around you?Financial Resource StrainAnswerDate RecordedDifficulty of Paying Living Zlyzapfu300/04/2025Difficulty of Paying Living ExpensesNot on file 11/26/2024Food InsecurityAnswerDate RecordedDo you worry your food will run out before you are able to buy more?Transportation NeedsAnswerDate RecordedDoes lack of transportation keep you from medical appointments?1 11/26/2024Does lack of transportation keep you from work, meetings or getting things that you need?Housing StabilityAnswerDate RecordedWhat is your housing situation today?UtilitiesAnswerDate RecordedDo you have trouble paying for utilities (for example, heat, electricity, water, phone)?1 11/26/2024Sex and Gender InformationValueDate RecordedSex Assigned at BirthNot on fileLegal YggQiwa3904/07/2012 5:43 AM CSTGender IdentityNot on fileSexual OrientationNot on file Last Filed Vital Signs Vital SignReadingTime TakenCommentsBlood Ezyxozgh809/7809 11:14 AM CDT Hhozm703611/26/2024 11:14 AM UHLLrxqmkniqtc81 ??C (98.6 ??F)11/26/2024 11:14 AM CDTRespiratory Ipgz858908/04/2021 10:32 AM CDTOxygen Flgatzkooa81%11/26/2024 11:14 AM CDTInhaled Oxygen Concentration--Lgwztx897.3 kg (243 lb 3.2 oz)11/26/2024 11:14 AM FFIXkeqxt192.3 cm (5' 6.25)09/18/2024 9:48 AM CDTBody Mass Index38.96 09/18/2024 9:48 AM CDT Plan of Treatment Health MaintenanceDue DateLast DoneCommentsHepatitis B series for 19+ (3 of 3 - 19+ 3-dose series), 06/05/2016COVID-19 vaccine series (2024- season)2024Influenza Vaccine (#1)2024MI (ht and wt on same day) for age 18+, 05/28/2023, 06/27/2022, Additional history existsDepression screening for age 12+, 06/27/2022, 04/12/2021Lipids for age 45-7506/, 06/27/2022Tetanus booster , 07/01/2014Colonoscopy through age 7507// (Verified in Care Everywhere or Patient Record)HIV for age 15-65Completed 09/18/2024Hepatitis C screening for age 18-15Wbapomcjg30/27/2025Pneumococcal series for age 6-49Aged OutNo longer eligible based on patient's age to complete this topic Procedures Procedure NamePriorityDate/TimeAssociated DiagnosisCommentsANTI HIV 1/2Routine 09/18/2024 10:33 AM CDT Screening for HIV (human immunodeficiency virus) ANTI SOMQywlxpv01/27/2025 10:33 AM CDT Need for hepatitis C screening test LIPID PANEL W REFLEX MEASURED OVNPxtemqk79/27/2025 10:33 AM CDT Screening for hyperlipidemia from Last 3 Months or Most Recently Relevant to Health Maintenance Results * (ABNORMAL) LIPID PANEL W REFLEX MEASURED LDL (09/18/2024 10:33 AM CDT) ComponentValueRef RangeTest MethodAnalysis TimePerformed AtPathologist SignatureCHOLESTEROL, EIHAM091(H)<200 mg/dLQuest Azure Power [facility] HealtheHDL RWNJIVCFQAW04> OR = 40 mg/dLQuest [facility] DgleCUKVPVMYEXOJN728(H)<150 mg/dLQuest [facility] Power [facility] HealtheComment: If a non-fasting specimen was collected, consider repeat triglyceride testing on a fasting specimen if clinically indicated. Ant et al. J. of Clin. Lipidol. 2015;9:129-169. LDL-PSRZNLXHNTZ106(H)mg/dL (calc)ViaSat [facility]arn[facility] HealtheComment: Reference range: <100 Desirable range <100 mg/dL for primary prevention; <70 mg/dL for patients with CHD or diabetic patients with > or = 2 CHD risk factors. LDL-C is now calculated using the Ac-Gabriel calculation, which is a validated novel method providing better accuracy than the Friedewald equation in the estimation of LDL-C. Ac SS et al. HELADIO. 2013;310(19): 0971-2724 (http://education.[employer] World [employer]/faq/JSI821) CHOL/HDLC RATIO5.3(H)<5.0 (calc)V[facility] HealtheNON HDL CHOLESTEROL 192(H)<130 mg/dL (calc)ViaSat [facility] HealtheComment: For patients with diabetes plus 1 major ASCVD risk factor, treating to a non-HDL-C goal of <100 mg/dL (LDL-C of <70 mg/dL) is considered a therapeutic option. Specimen (Source)Anatomical Location / LateralityCollection Method / Volume Collection TimeReceived TimeBloodBLOOD SPECIMEN / Msrndsz4609/18/2024 10:33 AM CDT 09/18/2024 10:34 AM CDT Narrative Authorizing ProviderResult TypeResult StatusMacBeaumont Hospital PACHEMISTRY Final ResultPerforming OrganizationAddressCity/State/ZIP CodePhone Number [employer] [address] [phone], [place] [facility] [address] [place] [address] * ANTI HCV (09/18/2024 10:33 AM CDT)ComponentValueRef RangeTest MethodAnalysis TimePerformed AtPathologist SignatureHEPATITIS C ANTIBODYNON-REACTIVE NON-REACTIVENeo NetworksLakeview HospitaleComment: HCV antibody was non-reactive. There is no laboratory evidence of HCV infection. In most cases, no further action is required. However, if recent HCV exposure is suspected, a test for HCV RNA (test code 49177) is suggested. For additional information please refer to http://education.KXEN/faq/QCE55b7 (This link is being provided for informational/ educational purposes only.) Specimen (Source)Anatomical Location / LateralityCollection Method / Volume Collection TimeReceived TimeBloodBLOOD SPECIMEN / Qdtvcoj1209/18/2024 10:33 AM CDT 09/18/2024 10:34 AM CDT Narrative Authorizing ProviderResult TypeResult StatusMacHighland Hospital Final ResultPerforming OrganizationAddressCity/State/ZIP CodePhone Number [employer] [address] [phone], [place] [facility] [address] [place] [address] * ANTI HIV 1/2 [73596.0] (09/18/2024 10:33 AM CDT)ComponentValueRef RangeTest MethodAnalysis TimePerformed AtPathologist SignatureHIV FINAL INTERPRETATOIN Neo NetworksLakeview HospitaleComment: HIV Negative HIV-1 antigen and HIV-1/HIV-2 antibodies were not detected. There is no laboratory evidence of HIV infection. HIV AG/AB, 4TH EDLYBF-DXBKGOXNJRS-CQMXYPZRCxuvx DiagnosticsLakeview HospitaleSpecimen (Source)Anatomical Location / LateralityCollection Method / VolumeCollection TimeReceived TimeBloodBLOOD SPECIMEN / Cmlgtwz7609/18/2024 10:33 AM CDT09/18/2024 10:34 AM CDT Narrative Authorizing ProviderResult TypeResult StatusMackencarter Vincent PASEND OUTS Final ResultPerforming OrganizationAddressCity/State/ZIP CodePhone Number [facility] [address] [facility] [address], [facility] [address] [place] [address] from Last 3 Months or Most Recently Relevant to Health Maintenance Insurance * Guarantor: Phil Gallagher AAccount TypeRelation to PatientDate of BirthPhone Billing AddressPersonal/[address] [place] [address] * Guarantor: Phil Gallagher AAccount TypeRelation to PatientDate of BirthPhone Billing AddressPersonal/[address] [place] [address] Care Teams Team MemberRelationshipSpecialty[place] [address] [place] [address] PCP - GeneralPhysician Assistant09/18/24
--- OUTSIDE RECORDS SUMMARY | 2025-03-20 11:23 | XMS_ITS | Clinical Summary ---
Author Organization [place] Address [address] [place] [address] Care Team Providers Care Programmer Business Name Role Phone No Ref-Primary, Physician Primary Care Provider Allergies No known active allergies Medications MedicationSigDispense QuantityRefillsLast FilledStart DateEnd DateStatus Omeprazole (PRILOSEC PO) Active guaiFENesin-codeine (ROBITUSSIN AC) 100-10 MG/5ML SOLN Take 10 mLs by mouth every 4 hours as needed 120 mL ctive albuterol (ALBUTEROL) 108 (90 BASE) MCG/ACT inhaler Inhale 2 puffs into the lungs every 4 hours as needed for shortness of breath / dyspnea 1 Inhaler ctive oxyCODONE (ROXICODONE) 5 MG immediate release tablet Take 1 tablet (5 mg) by mouth every 6 hours as needed for moderate to severe pain 15 tablet ctive LORazepam (ATIVAN) 0.5 MG tablet Take 0.5 mg by mouth every 6 hours as needed for anxietyActive metoclopramide (REGLAN) 5 MG tablet Take 1 tablet (5 mg) by mouth 4 times daily (before meals and nightly) 20 tablet 12/05/2020ctive SUMAtriptan (IMITREX) 25 MG tablet Take 25-100mg one time. May repeat 25mg every two hours up to a maximum of 200mg in 24 hours. 8 tablet 12/05/2020ctive ibuprofen (ADVIL/MOTRIN) 800 MG tablet Take 1 tablet (800 mg) by mouth every 6 hours as needed for moderate pain. 20 tablet /Expired Encounters DateTypeDepartmentCare PajmQqlwrniegiw58/25/2025 1:11 AM COMMERCIAL ROOFER - 02/16/2025 2:29 AM CSTEmerjonathan [facility] [address] [place] [address] Jhonatan Manzano MD Arm laceration, left, initial encounter (Primary Dx) Discharge Disposition: Home or Self Care02/15/2025Travelfrom Last 3 Months Social History Tobacco UseTypesPacks/DayYears UsedDateSmoking Tobacco: Never AssessedAdolescent EducationAnswerDate RecordedGetting School Help NeededNot on file12/30/2022Sex and Gender InformationValueDate RecordedSex Assigned at BirthNot on fileLegal XzwRqwq18/04/2012 4:13 AM CSTGender IdentityNot on fileSexual OrientationNot on file Last Filed Vital Signs Vital SignReadingTime TakenCommentsBlood Uzcegsdl292/9450802/16/2025 2:14 AM COMMERCIAL ROOFER Bplrs043002/16/2025 2:23 AM PRDOrofjyjcigj85.6 ??C (97.8 ??F)02/15/2025 10:57 PM CSTRespiratory Aaoo227304/18/2024 2:23 AM CSTOxygen Kolkafmjje32%02/16/2025 2:23 AM CSTInhaled Oxygen Concentration--Aapwqy804.8 kg (255 lb 4.7 oz)02/15/2025 10:57 PM POOAhdkkz770.2 cm (5' 7)02/15/2025 10:57 PM CSTBody Mass Index39.98 02/15/2025 10:57 PM COMMERCIAL ROOFER Plan of Treatment Health MaintenanceDue DateLast DoneCommentsADVANCE CARE OGOTLAZK1977ANNUAL REVIEW OF HM CYQGGQ55 1977CT CQNYMUMPHUCZ05/14/5358UXI08 1977FLEX SIG 1977sDNA (Cologuard)1975 8232VGOKUCEMKFX03/14/1987COLORECTAL CANCER LIANXMAMQ94/14/2821KKUWZ34/14/2017DIABETES XXHINEUKM89/, 11/13/2020, 01/22/2019, Additional history existsPHQ-2 (once per calendar year) 2024HEPATITIS B VACCINE (3 of 3 - 19+ 3-dose series), 06/05/2016COVID-19 VACCINE (1 - 2024- season)2024INFLUENZA VACCINE (#1) 2024EARLY PREVENTIVE VISIT6009/18/2024, 06/27/2022ZOSTER VACCINE (1 of 2)2027DTAP/TDAP/TD VACCINE (3 - Td or Tdap), 07/01/2014HEPATITIS C JRCWXIMSEQsnhdsrzw82/27/2025HIV SCREENINGCompleted 09/18/2024HPV VACCINE (No Doses Required)CompletedMENINGITIS VACCINEAged OutNo longer eligible based on patient's age to complete this topicPNEUMOCOCCAL VACCINE: PEDIATRICS (0 to 5 YEARS) AND AT-RISK PATIENTS (6 to 49 YEARS)Aged Out No longer eligible based on patient's age to complete this topic Procedures Procedure NamePriorityDate/TimeAssociated DiagnosisCommentsXR ELBOW LEFT G/E 3 SPFTJAYOJ65/24/2025 11:15 PM COMMERCIAL ROOFER COMPREHENSIVE METABOLIC DQUSMURHU11/13/2021 12:00 PM CDT from Last 3 Months or Most Recently Relevant to Health Maintenance Results * XR Elbow Left G/E 3 Views (02/15/2025 11:15 PM COMMERCIAL ROOFER)Anatomical RegionLaterality ModalityElbow, Left ElbowLeftComputed RadiographySpecimen (Source)Anatomical Location / LateralityCollection Method / VolumeCollection TimeReceived Time 02/15/2025 11:15 PM COMMERCIAL ROOFER Impressions 02/15/2025 11:37 PM COMMERCIAL ROOFER IMPRESSION: Normal joint spaces and alignment. No fracture or joint effusion. Narrative 02/15/2025 11:37 PM COMMERCIAL ROOFER EXAM: XR ELBOW LEFT G/E 3 VIEWS LOCATION: [facility] DATE: 02/15/2025 INDICATION: Trauma COMPARISON: None. Procedure Note Yobani Warner MD - 02/15/2025 EXAM: XR ELBOW LEFT G/E 3 VIEWS LOCATION: [facility] DATE: 02/15/2025 INDICATION: Trauma COMPARISON: None. IMPRESSION: Normal joint spaces and alignment. No fracture or jointeffusion. Authorizing ProviderResult TypeResult StatusChristopher Eliseo Manzano MDIMGisella DIAGNOSTIC IMAGING ORDERABLESFinal Result * Comprehensive metabolic panel (12/05/2020 12:00 PM CDT)ComponentValueRef Range Test MethodAnalysis TimePerformed AtPathologist ZwbvsffmjDoehmj775743 - 144 mmol/L12/05/2020 12:31 PM CDTRH LABORATORYPotassium (POCT)4.03.4 - 5.3 mmol/L 12/05/2020 12:31 PM CDTRH LABORATORYChloride (POCT)84949 - 109 mmol/L 12/05/2020 12:31 PM CDTRH LABORATORYCarbon Dioxide (CO2) (POCT)2520 - 32 mmol/L12/05/2020 12:31 PM CDTRH LABORATORYAnion Gap (POCT)63 - 14 mmol/L 12/05/2020 12:31 PM CDTRH LABORATORYUrea Nitrogen (POCT)177 - 30 mg/dL 12/05/2020 12:31 PM CDTRH LABORATORYCreatinine0.920.66 - 1.25 mg/dL12/05/2020 12:31 PM CDTRH LABORATORYCalcium9.28.5 - 10.1 mg/dL12/05/2020 12:31 PM CDTRH LABORATORYGlucose (POCT)8270 - 99 mg/dL12/05/2020 12:31 PM CDTRH LABORATORY Alkaline Wdyronlvygb0740 - 150 U/L12/05/2020 12:31 PM CDTRH KASAMSPJOLZOI807 - 45 U/L12/05/2020 12:31 PM CDTRH HFYESRTYWVIHF936 - 70 U/L12/05/2020 12:31 PM CDTRH LABORATORYProtein Total7.16.8 - 8.8 g/dL12/05/2020 12:31 PM CDTRH LABORATORYAlbumin (POCT)3.93.4 - 5.0 g/dL12/05/2020 12:31 PM CDTRH LABORATORY Bilirubin Total0.70.2 - 1.3 mg/dL12/05/2020 12:31 PM CDTRH LABORATORYGFR Estimate>90>60 mL/min/1.32w79112/05/2020 12:31 PM [facility] LABORATORYComment:As of October 02, 2020, eGFR is calculated by the CKD-EPI creatinine equation, without race adjustment. eGFR can be influenced by muscle mass, exercise, and diet. The reported eGFR is an estimation onlyand is only applicable if the renal function is stable.Specimen (Source)Anatomical Location / LateralityCollection Method / VolumeCollection TimeReceived TimeBloodSTRUCTURE OF LEFT UPPER LIMB / UnknownVenipuncture / Kgjxsou7012/05/2020 12:00 PM CDT12/05/2020 12:06 PM CDT Narrative Authorizing ProviderResult TypeResult StatusCeasar Morrison MDLAB - BLOOD ORDERABLESFinal ResultPerforming OrganizationAddressCity/State/ZIP CodePhone Number [facility] [address] [facility] (1st floor, no room number) [place] [address], [facility] [phone] from Last 3 Months or Most Recently Relevant to Health Maintenance Insurance * Guarantor: Phil Gallagher TypeRelation to PatientDate of BirthPhone Billing AddressPersonal/Jqhqab[address]nah[address] [place] [address] * Guarantor: Phil Gallagher TypeRelation to PatientDate of BirthPhone Billing AddressPersonal/BmcgylDnua[address] [place] [address] * Guarantor: Phil Gallagher TypeRelation to PatientDate of BirthPhone Billing AddressWorker's BknfagqeeaukTmzh[address] [place] [address] * Guarantor: Phil Gallagher TypeRelation to PatientDate of BirthPhone Billing AddressWorker's CanhmrjkdqomTakh[address] [place] [address] Care Teams Team MemberRelationshipSpecialtyStart DateEnd Date No Ref-Primary, Physician PCP - General11/13/20
--- NOTE | 2025-03-20 11:46 | ED.GENADULT ---
HPI - General Adult General Date Seen: 03/20/25 Chief complaint: Abdominal Pain Stated complaint: kidney stone Time Seen by Provider: 03/20/25 11:46 History of Present Illness HPI narrative: 50 yo M with a history of previous kidney stone, depression/anxiety, Chiari malformation type 1, but generally healthy. He has been sick for about 3 days with symptoms of sore throat, cough, body aches, chills and sweats, leading to right flank pain and left upper chest pain. He does have a busy job. One of his coworkers has been sick last week and called in sick on Saturday. He suspects that his co-worker probably has influenza. The patient developed his 1st symptoms on Saturday while he was at work with some body aches and mild sore throat. Symptoms were worse on morning with fairly diffuse body aches, intermittent chills and sweats, development of cough (nonproductive). Along with that he was pretty tired and fatigued laid in bed all day. He notes that he was not drinking enough water and got dehydrated. Yesterday he started developing pain in his right flank that is suspicious to him of a kidney stone. It is similar to prior. No dysuria or visible hematuria. No fever. No anterior abdominal pain. Also did a his cough is ongoing and is noticing some pain in his left shoulder blade area triggered every time he coughs. He thinks he probably pulled a muscle with his bad coughing spells. He is not really short of breath. No history of asthma or wheezing. Related Data Home Medications ?Medication ?Instructions ?Recorded ?Confirmed omeprazole 20 mg tablet,delayed 20 mg PO QDAY 03/06/22 03/20/25 release Allergies Allergy/AdvReac Type Severity Reaction Status Date / Time No Known Drug Allergies Allergy Verified 03/20/25 11:39 [facility] Medical History (Updated 03/20/25 @ 14:46 by Matt Miranda MD) Otitis media ?H66.90 - Otitis media, unspecified, unspecified ear (ICD-10) Otitis externa ?H60.90 - Unspecified otitis externa, unspecified ear (ICD-10) Sore throat ?J02.9 - Acute pharyngitis, unspecified (ICD-10) Social History (Updated 09/29/23 @ 15:35 by Keyona Ordonez MD) Smoking Status: Former smoker What tobacco products do you use: cigarettes Smoking quit date/years: <= 15 years ago Do you use any of these nicotine containing products: None Second hand tobacco smoke exposure: No How often do you have a drink containing alcohol: monthly or less How many standard drinks containing alcohol do you have on a typical day: 1 or 2 How often do you have six or more drinks on one occasion: Never AUDIT-C Alcohol total score: 1 Non-prescribed substance use: marijuana (any form) service: No Exam Narrative: Exam Narrative: Constitutional: Appears well-developed and well-nourished. Alert. Conversant but frequent wet sounding, nonproductive cough.. Non toxic. HENT: Head: Atraumatic. Nose: Nose normal. Mouth/Throat: Oral mucosa is clear . Mucous membranes are moist. no trismus. Pharynx normal. Eyes: Conjunctivae normal. EOM normal. Pupils equal, round, and reactive to light. No scleral icterus. Neck: Normal range of motion. Neck supple. No tracheal deviation present. Cardiovascular: Normal rate, regular rhythm. No gallop. No friction rub. No murmur heard. Symmetric radial artery pulses Pulmonary/Chest: Frequent cough No stridor. No respiratory distress. No wheezes. No rales. No rhonchi . No ribcage tenderness. Abdominal: Soft. No distension. No mass. No tenderness. No rebound. No guarding. Mild right CVA Musculoskeletal: RUE: Normal range of motion. No tenderness. No deformity LUE: Normal range of motion. No tenderness. No deformity RLE: Normal range of motion. No edema. No tenderness. No deformity LLE: Normal range of motion. No edema. No tenderness. No deformity Neurological: Alert and oriented to person, place, and time. Normal strength. CN II-VII intact. No sensory deficit. GCS eye subscore is 4. GCS verbal subscore is 5. GCS motor subscore is 6. Normal coordination Skin: Skin is warm and dry. No rash noted. No pallor. Normal capillary refill. Psychiatric: Normal mood. Normal affect. Const: Vital Signs, click to edit/add: Vital Signs - 24 hr 03/20/25 11:40 03/20/25 12:41 03/20/25 12:45 Temperature 98.3 F Pulse Rate 81 84 Pulse Rate [Pulse Oximeter] 93 Respiratory Rate 18 Blood Pressure Blood Pressure [Ri ght Upper Arm] 157/102 H Pulse Oximetry 98 94 97 Oxygen Delivery Me thod Room Air 03/20/25 13:00 03/20/25 13:15 03/20/25 14:18 Temperature Pulse Rate 69 73 Pulse Rate [Pulse Oximeter] Respiratory Rate Blood Pressure 132/96 H Blood Pressure [Ri ght Upper Arm] Pulse Oximetry 96 98 Oxygen Delivery Me thod 03/20/25 14:19 03/20/25 14:30 03/20/25 14:32 Temperature Pulse Rate 80 76 76 Pulse Rate [Pulse Oximeter] Respiratory Rate Blood Pressure 140/96 H Blood Pressure [Ri ght Upper Arm] Pulse Oximetry 95 97 96 Oxygen Delivery Me thod 03/20/25 14:45 Temperature Pulse Rate 74 Pulse Rate [Pulse Oximeter] Respiratory Rate Blood Pressure Blood Pressure [Ri ght Upper Arm] Pulse Oximetry 97 Oxygen Delivery Me thod Course Vital Signs Vital signs: Initial Vital Signs Temperature 98.3 F 03/20/25 11:40 Temperature Source Oral 03/20/25 11:40 Pulse Rate 93 03/20/25 11:40 Respiratory Rate 18 03/20/25 11:40 Blood Pressure 157/102 H 03/20/25 11:40 Blood Pressure Mean 120 H 03/20/25 11:40 Pulse Oximetry 98 03/20/25 11:40 Oxygen Delivery Method Room Air 03/20/25 11:40 Vital Signs Temperature 98.3 F 03/20/25 11:40 Pulse Rate 93 03/20/25 11:40 Respiratory Rate 18 03/20/25 11:40 Blood Pressure 157/102 H 03/20/25 11:40 Pulse Oximetry 98 03/20/25 11:40 Oxygen Delivery Method Room Air 03/20/25 11:40 Temperature 98.3 F 03/20/25 11:40 Pulse Rate 74 03/20/25 14:45 Respiratory Rate 18 03/20/25 11:40 Blood Pressure 140/96 H 03/20/25 14:32 Pulse Oximetry 97 03/20/25 14:45 Oxygen Delivery Method Room Air 03/20/25 11:40 Medications Administered Medications: Discontinued Medications Generic Name Dose Route Start Last Admin Trade Name Freq PRN Reason Stop Dose Admin Sodium Chloride 1,000 mls @ 1,000 mls/hr 03/20/25 12:00 03/20/25 13:35 0.9 % Sodium Chloride 1000 Ml IV 03/20/25 12:59 Infused .Q1H MARIAN Infusion Ketorolac Tromethamine 15 mg 03/20/25 11:58 03/20/25 12:37 Ketorolac 15 Mg/Ml Inj IVP 03/20/25 11:59 15 mg ONCE ONE Administration Medical Decision Making [facility] Narrative Medical decision making narrative: This patient presents with multiple symptoms including sore throat, cough, body aches, and fatigue ongoing since Saturday, 3 days ago. With interval development of pain in his right flank yesterday on Saturday that is concerning to him for possible right-sided kidney stone. Overall the patient has some respiratory symptoms seem consistent with influenza. He is positive for influenza A. Chest x-ray is obtained because he has been having a little bit of left posterior upper chest pain. It is negative for any sign of pneumonia. I think that the chest pain is probably musculoskeletal from coughing. I do not think he needs further workup with serial troponins, D-dimer testing, CT PA. The patient is showing exam findings of dehydration and that it fits with his clinical story of very poor appetite for the past couple of days. I also see that he has hemoconcentration with a hemoglobin of 17. He received a L of fluid and Toradol here in the ER and is feeling better. He did not want any stronger pain medications or opiates. In terms of managing his influenza we discussed that he is really outside the window for maximal benefit of Tamiflu since he has now been sick for more than 48 hours. He would agree and prefer a course of supportive care for influenza. At this point no sign of other community-acquired pneumonia requiring antibiotics. Differential Diagnosis for his right flank pain considered includes: Ureterolithiasis, UTI, pyelonephritis, AAA, colitis, diverticulitis, volvulus, appendicitis, cholecystitis, among others. Fortunately workup is reassuring. CT scan is negative for any sign of ureteral stone or hydronephrosis. Also no sign of UTI. LFTs are normal. Urinalysis negative for infection. White count normal. Kidney function normal Precautions for return to the ER were reviewed. Lab Data Labs: Lab Results 03/20/25 03/20/25 Range/Units 12:25 13:20 WBC 5.01 (4.50-11.00) K/uL RBC 5.96 H (4.30-5.90) m/uL Hgb 17.6 H (13.5-17.5) gm/dL Hct 52.3 (37.0-53.0) % MCV 88 (80-100) fL MCH 30 (26-34) pg MCHC 34 (32-36) gm/dL RDW Coeff of Natalia 12.4 (11.5-15.5) % Plt Count 174 (140-440) K/uL Neut % (Auto) 52.5 (42.0-72.0) % Lymph % (Auto) 28.7 (20-44) % [place] % (Auto) 16.8 H (0.0-11.0) % Eos % (Auto) 1.6 (0.0-7.0) % Baso % (Auto) 0.2 (0.0-3.0) % Neut # (Auto) 2.63 (1.7-7.0) K/uL Lymph # (Auto) 1.44 (0.90-2.90) K/uL [place] # (Auto) 0.80 (0.00-0.90) K/UL Eos # (Auto) 0.08 (0.00-0.50) K/uL Baso # (Auto) 0.01 (0.00-0.30) K/uL Abs Immat Gran (auto) 0.01 (0.00-0.30) K/uL Imm/Tot Granulo (auto) 0.2 % Sodium 135 (135-149) mmol/L Potassium 4.3 (3.6-5.1) mmol/L Chloride 104 (96-114) mmol/L Carbon Dioxide 22 (20-32) mmol/L Anion Gap 9 (7-15) mEq/L BUN 13 (5-24) mg/dL Creatinine 0.8 (0.5-1.5) mg/dL Estimated Creat Clear 101.90 Estimated GFR 109 ml/min Glucose 122 H (60-115) mg/dL Calcium 9.8 (8.4-10.6) mg/dL Total Bilirubin 0.4 (0.1-1.5) mg/dL AST 30 (12-35) U/L ALT 40 (4-50) U/L Alkaline Phosphatase 93 (40-150) U/L Total Protein 7.5 (6.0-8.3) g/dL Albumin 4.4 (3.3-5.0) g/dL Lipase 161 (23-300) U/L Urine Color Yellow (Yellow) Urine Appearance Clear (Clear) Urine pH 6.0 (5.0-8.5) Ur Specific [place] >= 1.030 (1.000-1.030) Urine Protein Trace A (Negative) Urine Glucose (UA) Negative (Negative) Urine Ketones Negative (Negative) Urine Blood Negative (Negative) Urine Nitrite Negative (Negative) Urine Bilirubin Negative (Negative) Urine Urobilinogen 0.2 (0.2-1.0) Ur Leukocyte Esterase Negative (Negative) Urine RBC 0-2 (0-2) Urine WBC 0-2 (0-5) Ur Squamous Epith Cells Few (None-Few) Urine Bacteria None (None) SARS-CoV-2 (PCR) Negative SARS-CoV-2 (Negative) Influenza Type A (PCR) POSITIVE PCR FLU A A (Negative) Influenza Type B (PCR) Negative PCR FLU B (Negative) RSV (PCR) Negative PCR RSV (Negative) Imaging Data Chest x-ray: Attestation: I have reviewed the pertinent imaging results. My impression: no infiltrates Radiologist's impression: IMPRESSION: 1. No acute cardiopulmonary disease is seen. CT scan - abdomen: Attestation: I have reviewed the pertinent imaging results. My impression: I don't see any hydro or stone Radiologist's impression: IMPRESSION: No acute findings identified within the abdomen or pelvis. No hydronephrosis. Small nonobstructing left renal calculus. Discharge Plan Discharge Clinical Impression: Influenza A Patient Disposition: Home, Self-Care Condition: Stable Instructions: Influenza (DC), Flank Pain (ED) Additional Instructions: As we discussesd, please come back to the ER if you have worsening symptoms, especially worse troubles breathing, chest pain, high fevers, confusion, dehydration, or weakness. To manage influenza you can treat fever with Tylenol or ibuprofen if needed. Rest and stay home from work until you are feeling better and you have been afebrile for more than 24 hours. Drink plenty of fluids and stay hydrated. At solid foods as you are able. If you are not dramatically improved within 5-7 days, please come back to the ER or see your doctor. If you get worse, come back to the ER right away. Prescriptions: No Action omeprazole 20 mg tablet,delayed release (DR/EC) 20 mg PO QDAY Follow Up/Referrals: Provider,Not a Local [Non-Staff, Family Practice] Stand Alone Forms: [employer] software Info Instructions
--- NOTE | 2025-03-20 11:58 | CRLHL7_ITS ---
For Patients: As a result of the Century Cures Act, medical imaging exams and procedure reports are released immediately into your electronic medical record. You may view this report before your referring provider. If you have questions, please contact your health care provider. INDICATION: Right flank pain TECHNIQUE: CT abdomen and pelvis without contrast. COMPARISON: CT abdomen and pelvis with contrast 04/05/2015. FINDINGS: Lower chest: Calcified granuloma in the right middle lobe. Liver: Small calcified granuloma. Gallbladder and bile ducts: Decompressed gallbladder without visible cholelithiasis or pericholecystic inflammation. Pancreas: Unremarkable. Spleen: Unremarkable. Adrenal glands: Unremarkable. Kidneys: No hydronephrosis. Small nonobstructing calculus in the upper pole of the left kidney. GI tract: No evidence of bowel obstruction or inflammation. Normal appendix. Colonic diverticulosis without acute diverticulitis. Vasculature: Abdominal aorta is normal in caliber. Scattered atherosclerotic calcifications. Lymph nodes: No lymphadenopathy. Peritoneum/Abdominal Wall: Unremarkable. No free air or significant free fluid. Pelvis: Unremarkable. No pelvic masses. Bones: No acute osseous abnormality. Unchanged mild posterior height loss of the L4 vertebral body. Chronic bilateral pars interarticularis defects at L4 with trace anterolisthesis of L4 on L5. Chronic pars interarticularis defect on the right at L5. IMPRESSION: No acute findings identified within the abdomen or pelvis. No hydronephrosis. Small nonobstructing left renal calculus. Please note that all CT scans at this facility use dose modulation, iterative reconstruction, and/or weight-based dosing when appropriate to reduce radiation dose to as low as reasonably achievable. Dictated by Sophy Hager MD @ 03/20/2025 1:06:10 PM (Electronically Signed)
--- NOTE | 2025-03-20 11:58 | CRLHL7_ITS ---
For Patients: As a result of the Cures Act, medical imaging exams and procedure reports are released immediately into your electronic medical record. You may view this report before your referring provider. If you have questions, please contact your health care provider. INDICATION: Cough TECHNIQUE: Chest radiograph 2 views COMPARISON: 08/23/2016 FINDINGS: Mediastinum: The mediastinum is normal in appearance. The heart silhouette is normal in size and morphology. Lung: There is a 4 mm granuloma in the right lung base and a 3 mm granuloma in the left midlung zone noted without change. No sign of pleural effusion seen. No pneumothorax is identified. Bone and Soft tissue: Unremarkable. IMPRESSION: 1. No acute cardiopulmonary disease is seen. Dictated by John Dozier MD @ 03/20/2025 12:43:54 PM Dictated by: John Dozier MD @ 03/20/2025 12:43:57 (Electronically Signed)
[2025-03-20 12:43] LABS: Hematocrit* 52.3 % (37.0-53.0); Hemoglobin* 17.6 gm/dL (13.5-17.5); Immature Granulocytes Abs Auto 0.01 K/uL (0.00-0.30); Immature Granulocytes Pct Auto 0.2 %; Lymphocytes Absolute Auto 1.44 K/uL (0.90-2.90); Mean Corpuscular HGB Conc 34 gm/dL (32-36); Mean Corpuscular Hemoglobin 30 pg (26-34); Mean Corpuscular Volume 88 fL (80-100); RDW Coefficient of Variation % 12.4 % (11.5-15.5); Red Blood Count* 5.96 m/uL (4.30-5.90); White Blood Count* 5.01 K/uL (4.50-11.00)
[2025-03-20 12:47] LABS: Slide Review Reflex No
[2025-03-20 12:55] LABS: Albumin* 4.4 g/dL (3.3-5.0); Chloride* 104 mmol/L (96-114); Potassium* 4.3 mmol/L (3.6-5.1); Sodium* 135 mmol/L (135-149)
[2025-03-20 12:58] LABS: Alanine Aminotransferase* 40 U/L (4-50); Alkaline Phosphatase* 93 U/L (40-150); Anion Gap 9 mEq/L (7-15); Aspartate Amino Transferase* 30 U/L (12-35); Bilirubin Total* 0.4 mg/dL (0.1-1.5); Blood Urea Nitrogen* 13 mg/dL (5-24); Calcium* 9.8 mg/dL (8.4-10.6); Carbon Dioxide* 22 mmol/L (20-32); Creatinine* 0.8 mg/dL (0.5-1.5); Est. Creatinine Clearance* 101.90; Estimated Glomerular Filt Rate 109 ml/min; Glucose* 122 mg/dL (60-115); Total Protein* 7.5 g/dL (6.0-8.3)
[2025-03-20 13:21] LABS: PCR FLU A POSITIVE PCR FLU A (Negative); PCR FLU B Negative PCR FLU B (Negative); PCR RSV Negative PCR RSV (Negative); SARS PCR* Negative SARS-CoV-2 (Negative)
[2025-03-20 13:32] LABS: Appearance Urine Clear (Clear)
== END 2025-03-20 14:56 | disposition home or self-care (01) ==
PROVIDERS: Emergency Provider Emergency Medicine; PCP Physician Assistant
DX: J10.1 Influenza due to other identified influenza virus with other respiratory manifestations (principal); N20.0 Calculus of kidney; Z87.442 Personal history of urinary calculi; Z87.891 Personal history of nicotine dependence
CPT/HCPCS: 36415; 71046; 74176; 80053; 81001; 83690; 85025; 87631; 96361; 96374; 99283; 99284; 99285; J1885; J7030